=== PATIENT | male | born 1990 | race American Indian/Alaskan Native ===

== ENCOUNTER 2016-09-24 10:22 | Emergency (ER) | payer OTHER ==
--- NOTE | 2016-09-24 10:47 | Emergency Department Report ---
Chief Complaint: Chest Pain Stated Complaint: CHEST PAIN Time Seen by Provider: 09/24/16 10:45 - HPI History of Present Illness: pt c/o chest pain with movement - ROS Review of Systems: - cough + pain worse with movement - Exam Physical Exam: + chest wall ttp MSE screening note: Focused history and physical exam performed. Due to findings the following was ordered: labs, xr, ekg ED Disposition for MSE Condition: Stable
[2016-09-24 11:24] LABS: Basophils % (Auto) 0.2 % (0.0-1.8); Eosinophils % (Auto) 0.1 % (0.0-4.3); Hematocrit 49.3 % (35.5-45.6); Hemoglobin 15.7 gm/dl (11.8-15.2); Mean Corpuscular HGB Conc 32 % (32-34); Mean Corpuscular Volume 80 fl (84-94); Platelet Count 226 K/mm3 (140-440); Red Blood Count 6.16 M/mm3 (3.65-5.03); Red Cell Distribution Width 14.6 % (13.2-15.2); White Blood Count 8.3 K/mm3 (4.5-11.0)
[2016-09-24 11:26] LABS: Mean Corpuscular Hemoglobin 26 pg (28-32)
[2016-09-24 11:38] LABS: Anion Gap 17 mmol/L; Blood Urea Nitrogen 11 mg/dL (9-20); Calcium 9.4 mg/dL (8.4-10.2); Carbon Dioxide 29 mmol/L (22-30); Creatine Kinase 123 units/L (55-170); Glucose 99 mg/dL (75-100); Potassium 4.7 mmol/L (3.6-5.0); Sodium 142 mmol/L (137-145)
--- NOTE | 2016-09-24 11:42 | XRay Report ---
CHEST 2 VIEWS INDICATION: Chest pain. COMPARISON: None similar at this institution. FINDINGS: PA and lateral chest radiographs demonstrate normal cardiomediastinal silhouette. Clear lungs. Intact bones. CONCLUSION: No acute disease in the chest. Thank you for the opportunity to participate in this patient's care.
--- NOTE | 2016-09-24 16:16 | Emergency Department Report ---
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 He denies any injury or heavy lifting. Reports every time he moves he feels short of breath. Patient denies use of alcohol but he said he smokes 2-3 cigarettes a day. Denies any history of blood clots or any history of blood clots in his family, denies history of hormone use, denies recent long distance travel by car or airplane, denies any swelling to his legs, denies cancer. Denies any history of heart disease. He said at 5:00 this morning was when he had the worst pain when he woke up but now his pain is gone. Now is having any medical problems. Any 6 out of 10 and feels sharp. MD Complaint: chest pain Onset/Timin -: days(s) Onset: awoke with symptoms Pain Location: other (mid chest area) Pain Radiation: none Severity: moderate Severity scale (0 -10): 6 Quality: sharp Consistency: now resolved Improves With: rest Worsens With: movement Context: other (none) re: denies: nausea, vomting, diaphoresis, dyspnea, sense of impending doom Other Symptoms: denies: cough, fever, syncope, rash, acid taste in mouth, leg swelling, palpitations, burping Treatments Prior to Arrival: none Aspirin use within the Past 7 Days: (0) No - Related Data On Oral Contraceptives: No Previous Rx's Medication Instructions Recorded Last Taken Type Naproxen [Naprosyn TAB] 500 mg PO BID PRN #16 tablet 09/24/16 Unknown Rx Allergies Allergy/AdvReac Type Severity Reaction Status Date / Time No Known Allergies Allergy Unverified 10/29/12 16:44 Heart Score - HEART Score History: Slightly suspicious EKG: Normal Age: < 45 Risk factors: No known risk factors Troponin: < normal limit HEART Score: 0 - Critical Actions Critical Actions: 0-3 pts:0.9-1.7%risk of adverse cardiac event.Candidate for discharge ED Review of Systems ROS: Stated complaint: CHEST PAIN Other details as noted in HPI Comment: All other systems reviewed and negative Constitutional: denies: chills, fever Respiratory: no symptoms reported Cardiovascular: chest pain. denies: palpitations, edema, syncope Gastrointestinal: denies: abdominal pain, nausea, vomiting, diarrhea Musculoskeletal: denies: back pain, joint swelling, arthralgia, myalgia Skin: denies: rash, change in color, change in hair/nails, pruritus Neurological: denies: headache, weakness, numbness, paresthesias, confusion, abnormal gait, vertigo Psychiatric: denies: anxiety ED Past Medical Hx - Past Medical History Previous Medical History?: No - Surgical History Past Surgical History?: No - Family History Family history: no significant - Social History Smoking Status: Current Every Day Smoker Substance Use Type: None - Medications Home Medications: Home Medications Medication Instructions Recorded Confirmed Last Taken Type Naproxen [Naprosyn TAB] 500 mg PO BID PRN #16 tablet 09/24/16 Unknown Rx ED Physical Exam - General Limitations: No Limitations General appearance: alert, in no apparent distress - Head Head exam: Present: atraumatic, normocephalic, normal inspection - Eye Eye exam: Present: normal appearance, PERRL, EOMI. Absent: periorbital swelling , periorbital tenderness Pupils: Present: normal accommodation - ENT ENT exam: Present: normal exam, normal orophraynx, mucous membranes moist, TM's normal bilaterally, normal external ear exam - Neck Neck exam: Present: normal inspection, full ROM. Absent: tenderness, meningismus, lymphadenopathy - Respiratory Respiratory exam: Present: normal lung sounds bilaterally, chest wall tenderness. Absent: respiratory distress - Cardiovascular Cardiovascular Exam: Present: regular rate, normal rhythm, normal heart sounds. Absent: systolic murmur, diastolic murmur - Expanded Cardiovascular Exam Expanded Peripheral pulses: 2+: Radial (R), Radial (L), Posterior Tibialis (R), Posterior Tibialis (L), Dorsalis Pedis (R), Dorsalis Pedis (L) - GI/Abdominal GI/Abdominal exam: Present: soft, normal bowel sounds. Absent: distended, tenderness, guarding, rebound, rigid - Extremities Exam Extremities exam: Present: normal inspection, full ROM, normal capillary refill. Absent: tenderness, pedal edema, joint swelling, calf tenderness - Back Exam Back exam: Present: normal inspection, full ROM. Absent: tenderness, CVA tenderness (R), CVA tenderness (L), muscle spasm, paraspinal tenderness, vertebral tenderness, rash noted - Neurological Exam Neurological exam: Present: alert, oriented X3, normal gait, reflexes normal. Absent: motor sensory deficit - Psychiatric Psychiatric exam: Present: normal affect, normal mood - Skin Skin exam: Present: warm, dry, intact, normal color. Absent: rash ED Course Vital Signs 09/24/16 10:42 Temperature 99 F Pulse Rate 65 Respiratory 18 Rate Blood Pressure 134/97 O2 Sat by Pulse 100 Oximetry Vital Signs 09/24/16 09/24/16 10:42 16:30 Temperature 99 F 98.3 F Pulse Rate 65 61 Respiratory 18 16 Rate Blood Pressure 134/97 Blood Pressure 153/107 [Left] O2 Sat by Pulse 100 100 Oximetry - Reevaluation(s) Reevaluation #1: 09/24/16 16:52 Patient is stable throughout ED course and his chest pain has subsided. AZRA score - Azra Score Age > 65: (0) No Aspirin use within the Past 7 Days: (0) No 3 or more CAD Risk Factors: (0) No 2 or more Angina events in past 24 hrs: (0) No Known CAD with more than 50% Stenosis: (0) No Elevated Cardiac Markers: (0) No ST Deviation Greater than 0.5mm: (0) No AZRA Score: 0 ED Medical Decision Making - Lab Data Result diagrams: 09/24/16 10:51 09/24/16 10:51 Lab Results 09/24/16 09/24/16 09/24/16 Range/Units 10:51 10:51 10:51 WBC 8.3 (4.5-11.0) K/mm3 RBC 6.16 H (3.65-5.03) M/mm3 Hgb 15.7 H (11.8-15.2) gm/dl Hct 49.3 H (35.5-45.6) % MCV 80 L (84-94) fl MCH 26 L (28-32) pg MCHC 32 (32-34) % RDW 14.6 (13.2-15.2) % Plt Count 226 (140-440) K/mm3 Lymph % (Auto) 18.4 (13.4-35.0) % Wilkes % (Auto) 6.9 (0.0-7.3) % Eos % (Auto) 0.1 (0.0-4.3) % Baso % (Auto) 0.2 (0.0-1.8) % Lymph # 1.5 (1.2-5.4) K/mm3 Wilkes # 0.6 (0.0-0.8) K/mm3 Eos # 0.0 (0.0-0.4) K/mm3 Baso # 0.0 (0.0-0.1) K/mm3 Seg Neutrophils % 74.4 H (40.0-70.0) % Seg Neutrophils # 6.2 (1.8-7.7) K/mm3 Sodium 142 (137-145) mmol/L Potassium 4.7 (3.6-5.0) mmol/L Chloride 101.0 (98-107) mmol/L Carbon Dioxide 29 (22-30) mmol/L Anion Gap 17 mmol/L BUN 11 (9-20) mg/dL Creatinine 1.0 (0.8-1.5) mg/dL Estimated GFR > 60 ml/min BUN/Creatinine Ratio 11.00 % Glucose 99 (75-100) mg/dL Calcium 9.4 (8.4-10.2) mg/dL Total Creatine Kinase 123 (55-170) units/L Troponin T < 0.010 (0.00-0.029) ng/mL - EKG Data -: EKG Interpreted by Me (attending physician) EKG shows normal: sinus rhythm Rate: normal (normal sinus rhythm at 62 bpm) - EKG Data Interpretation: no acute changes, normal EKG - Radiology Data Radiology results: report reviewed Chest x-ray revealed no acute cardiopulmonary findings - Medical Decision Making ED course: Presented to the emergency room complaining of chest pain that started 2 days ago and became worse this morning when he woke up. He reports the pain is in his midchest area. Based on her rule patient 0 criteria No need for further workup, as <2% chance of PE. Physical findings and reproducible mid chest pain. CBC with elevated hematocrit ,hemoglobin MCH suggesting hemoconcentration and probably dehydration. She does not have any nausea or vomiting and he is able to tolerate oral liquids and able to drink liquid in the emergency room. I discussed lab results the patient along with chest x-ray and EKG findings. Told him if this pain returns then he should come back to the emergency room that he should follow up with manager company for further evaluation. Also informed him that lab work shows that he is with some dehydration and he'll need to increase his fluid intake. Patient voiced understanding of diagnosis and treatment plan and discharged home with family in stable condition. Diagnostics/lab-Review lab section and the allergies section for detail. EKG sinus rhythm at 62 bpm. Troponin negative 1. Atypical chest pain-reproducible will start on anti-inflammatory and referred to cardiology. 2. Shortness of breath-resolved Patient discharged home to follow up with cardiology and also given prescription for naproxen. He is in stable condition upon discharge Critical care attestation.: If time is entered above; I have spent that time in minutes in the direct care of this critically ill patient, excluding procedure time. ED Disposition Clinical Impression: Atypical chest pain, Shortness of breath Disposition: [id number]-01 TO HOME OR SELFCARE Is pt being admited?: No Does the pt Need Aspirin: No Condition: Stable Instructions: Chest Pain (ED) Additional Instructions: Increase h fluid intake your blood work suggests dehydration Follow-up with cardiology as suggested Naproxen this is a anti-inflammatory Prescriptions: Naproxen [Naprosyn TAB] 500 mg PO BID PRN #16 tablet PRN Reason: Pain Referrals: PRIMARY CAREMD [Primary Care Provider] - 09/26/16
[2016-09-24 16:32] VITALS: BP 153/107
== END 2016-09-24 17:44 | disposition home or self-care (01) ==
LOC: ED 10:22
DX: R07.89 Other chest pain (principal); R06.02 Shortness of breath; F17.210 Nicotine dependence, cigarettes, uncomplicated
CPT/HCPCS: 36415; 71020; 80048; 82550; 84484; 85025; 93005; 93010